=== PATIENT | male | born 1965 | race Caucasian/White ===

== ENCOUNTER 2022-05-01 11:33 | Emergency (ER) | payer SELFPAY ==
[2022-05-01 11:36] VITALS: BP 140/99; PULSE 94; RESP 18; TEMP 36.8; O2SAT 96; BMI 26.6
--- NOTE | 2022-05-01 11:55 | CTR_ITS ---
PROCEDURE INFORMATION: Exam: CT Head Without Contrast Exam date and time: 05/01/2022 12:31 PM Age: 56 years old Clinical indication: Pain; Headache not specified TECHNIQUE: Imaging protocol: Computed tomography of the head without contrast. Radiation optimization: All CT scans at this facility use at least one of these dose optimization techniques: automated exposure control; mA and/or kV adjustment per patient size (includes targeted exams where dose is matched to clinical indication); or iterative reconstruction. COMPARISON: No relevant prior studies available. RADIATION DOSE METRICS: Total DLP (mGy-cm): 1036.48 FINDINGS: Brain: Normal. No hemorrhage. No mass effect. Cortical sulci and white matter are unremarkable for age Cerebral ventricles: No ventriculomegaly. Paranasal sinuses: Visualized sinuses are unremarkable. No fluid levels. Mastoid air cells: Visualized mastoid air cells are well aerated. Bones/joints: Unremarkable. Soft tissues: Unremarkable. CT/CT head wo con* [id number] IMPRESSION: Normal CT examination of the head.
--- NOTE | 2022-05-01 11:57 | ED_ITS ---
HPI - Headache General: Chief Complaint: Headache Stated Complaint: Head aches Time Seen by Provider: 05/01/22 11:47 History of Present Illness: 56-year-old male who comes in with a left frontal headache. Patient describes headache as a dull ache. It came on gradually. The patient's headache is located in his left frontal area, radiating to the left occipital area and into his neck. He states he has had some associated dizziness as well as blurry vision. He denies fever. He denies any focal weakness or numbness. No rash. No prior history of migraine headaches. He tried Tylenol yesterday without improvement. He has chronic neck pain but he states it does not typically give him headaches. He denies URI symptoms. Associated symptoms: Deny fever(s) Review of Systems General: Reports: 10 or more systems reviewed and unremarkable except in HPI and below Const: Denies: fever(s), chills or body aches Eyes: Reports: blurry vision; Denies: eye discharge ENMT: Reports: disequilibrium; Denies: throat pain, tinnitus, nasal discharge or nasal congestion Musc: Reports: joint pain Neuro: Reports: headache(s), dizziness and vertigo; Denies: numbness in extremities, weakness in extremities, sensory changes or lack of coordination Physical Exam Const: COMMON NORMALS: no acute distress, patient oriented x3, alert and well nourished HENMT: COMMON NORMALS: normocephalic, atraumatic, external ears normal, Normal external nose present, Normal nasal mucous membranes and turbinates present and moist oral mucous membranes HEAD & SCALP: normocephalic, atraumatic and occipital foramen tenderness NOSE: Normal external nose present and Normal nasal mucous membranes and turbinates present EXTERNAL EAR: Yes external ears normal Eye: COMMON NORMALS: Equal, round and reactive pupils present, EOMs intact bilaterally and conjunctivae normal CONJUNCTIVA: Yes conjunctivae normal PUPIL: Yes Equal, round and reactive pupils present Neck/C-Spine: COMMON NORMALS: full ROM and no lymphadenopathy Resp: COMMON NORMALS: normal respiratory effort and clear to auscultation bilaterally AUSCULTATION: clear to auscultation bilaterally Cardio: COMMON NORMALS: regular rate and regular rhythm RATE: regular rate RHYTHM: regular rhythm GI: COMMON NORMALS: Soft to palpation and No hepatosplenomegaly present INSPECTION: No abdominal distension PALPATION: Yes Soft to palpation and Yes No hepatosplenomegaly present Extremity: COMMON NORMALS: no joint enlargement and no clubbing, cyanosis or edema Neuro: COMMON NORMALS: patient oriented x3, CN's II-XII intact bilaterally, moves all extremities, no focal motor deficits and no sensory deficits noted SENSORIUM/ORIENTATION: Yes alert Course ED course: Patient is had a CT of his head, labs obtained. Discussed results with him and the nursing home staff. Plan for discharge back to nursing home. Reevaluation(s): Reevaluation #1: Discussed results with the patient and the nursing home personnel with him. CT head is negative. Operatory studies are significant for being positive for influenza a which likely explains his symptoms. He does have an elevated CRP of 8.2 and mild hyponatremia with a sodium of 135. He is nontoxic in appearance but is tolerating p.o. fluids. I do not feel he has any meningeal signs and do not feel he needs a lumbar puncture. Feel he stable for discharge back to the nursing home. Do not feel that Tamiflu would be of benefit as he is 72 hours into his illness. Recommend supportive care including Tylenol, ibuprofen fluids and rest. Return precautions have been discussed Vital Signs: Vital signs: Vital Signs Temperature 98.2 F 05/01/22 11:36 Pulse Rate 94 05/01/22 11:36 Respiratory Rate 18 05/01/22 11:36 Blood Pressure 140/99 05/01/22 11:36 Pulse Oximetry 96 05/01/22 11:36 Oxygen Delivery Me thod 05/01/22 11:36 MDM - Headache Medical Decision Making 56-year-old male who presents with a left frontal headache. Gradual onset, not sudden onset thunderclap type headache so doubt subarachnoid hemorrhage. This is a new headache for the patient with associated blurry vision and dizziness. We will obtain a CT as well as labs including a sed rate. We will also swab for influenza and COVID. Patient is afebrile and has no nuchal rigidity so I doubt this is meningitis. Differential Diagnosis Likely migraine, tension headache, subarachnoid hemorrhage, headache, meningitis and sinusitis Lab Data 05/01/22 12:15 05/01/22 12:[address] 05/01/22 11:55 IMPRESSION: Normal CT examination of the head. Laboratory Results WBC 4.7 10^3/uL (4.0-10.0) 05/01/22 12:15 RBC 4.84 10^6/uL (4.1-5.3) 05/01/22 12:15 Hgb 15.3 g/dL (11.7-16.6) 05/01/22 12:15 Hct 44.0 % (42.0-52.0) 05/01/22 12:15 MCV 90.9 fl (80-94) 05/01/22 12:15 MCH 31.6 pg (28.0-34.0) 05/01/22 12:15 MCHC 34.8 g/dL (30.0-36.0) 05/01/22 12:15 RDW 12.2 % (12.1-15.1) 05/01/22 12:15 Plt Count 219 10^3/cmm (130-400) 05/01/22 12:15 MPV 9.2 fL (7.4-10.4) 05/01/22 12:15 Neut % (Auto) 54.2 % 05/01/22 12:15 Lymph % (Auto) 25.6 % 05/01/22 12:15 [place] % (Auto) 19.6 % 05/01/22 12:15 Eos % (Auto) 0.2 % 05/01/22 12:15 Baso % (Auto) 0.2 % 05/01/22 12:15 Neut # (Auto) 2.54 10^3/uL (1.8-7.7) 05/01/22 12:15 Lymph # (Auto) 1.2 10^3/uL (0.8-4.8) 05/01/22 12:15 [place] # (Auto) 0.9 10^3/uL (0.2-0.9) 05/01/22 12:15 Eos # (Auto) 0.0 10^3/uL (0.0-0.8) 05/01/22 12:15 Baso # (Auto) 0.0 10^3/uL (0.0-0.1) 05/01/22 12:15 Nucleated RBC % (auto) 0 % 05/01/22 12:15 Nucleated RBCs # 0.0 /100WBC 05/01/22 12:15 ESR 6 mm/hr (0-10) 05/01/22 12:15 Sodium 135 mmol/L (136-145) L 05/01/22 12:15 Potassium 4.2 mmol/L (3.5-5.1) 05/01/22 12:15 Chloride 99 mmol/L (98-107) 05/01/22 12:15 Carbon Dioxide 28 mmol/L (22-29) 05/01/22 12:15 Anion Gap 12.2 (5-19) 05/01/22 12:15 BUN 15 mg/dL (6-20) 05/01/22 12:15 Creatinine 1.0 mg/dL (0.7-1.2) 05/01/22 12:15 GFR Calculation 77.6 mL/min (90-130) L 05/01/22 12:15 Glucose 122 mg/dL (65-115) H 05/01/22 12:15 Calculated Osmolality 282 mOsm/kg (285-295) L 05/01/22 12:15 Calcium 9.3 mg/dL (8.5-10.5) 05/01/22 12:15 Total Bilirubin 0.3 mg/dL (0.15-1.2) 05/01/22 12:15 AST 22 U/L (0-40) 05/01/22 12:15 ALT 14 U/L (0-41) 05/01/22 12:15 Alkaline Phosphatase 60 U/L (40-130) 05/01/22 12:15 C-Reactive Protein 8.2 mg/L (0.0-4.9) H 05/01/22 12:15 Total Protein 7.5 g/dL (6.6-8.7) 05/01/22 12:15 Albumin 4.2 g/dL (3.5-5.2) 05/01/22 12:15 Globulin 3.3 g/dL (1.3-4.6) 05/01/22 12:15 TSH 0.53 uIU/mL (0.27-4.20) 05/01/22 12:15 Nasal Influ A H1 2009 PCR Detected (NOT DETECT) A 05/01/22 15:07 Coronavirus 229E (PCR) Not detected (NOT DETECT) 05/01/22 12:57 Influenza A (H1) PCR Not detected (NOT DETECT) 05/01/22 15:07 Influenza A (H3) PCR Not detected (NOT DETECT) 05/01/22 15:07 Influenza Type A (PCR) Detected (NOT DETECT) A 05/01/22 15:07 Influenza Type B (PCR) Not detected (NOT DETECT) 05/01/22 15:07 SARS-CoV-2 (PCR) Not detected (NOT DETECT) 05/01/22 12:57 Discharge Plan Discharge Patient Disposition: Home Clinical Impression: Influenza A, Headache Condition: Stable Prescriptions: No Action No Known Home Medications Discharge Orders: Discharge ED (Routine); Ordered 05/01/22 Ordered By: Tianna Dior Discharge Diet: Advance as tolerated Discharge Activity: Resume usual activity Patient Instructions: Influenza (ED), Opioid Safety, Pain Management Activity Restrictions/Additional Instructions: Tylenol or ibuprofen as needed for pain and fever. Push fluids. Rest. Return if your symptoms are worsening. Follow-up as needed with your primary care doctor Coding Level of Care Code ED [employer] for [employer] Exam Comprehensive
[2022-05-01] MEDS: orphenadrine 30 mg/mL Inj 2 mL 60 MG IVP (12:14)
[2022-05-01] MEDS: ketorolac 30 mg/mL INJ IVP (12:14)
[2022-05-01 12:23] LABS: Basophils % 0.2 %; Eosinophils % 0.2 %; Hemoglobin 15.3 g/dL (11.7-16.6); Lymphocytes # 1.2 10^3/uL (0.8-4.8); Lymphocytes % 25.6 %; Mean Corpuscular HGB Conc 34.8 g/dL (30.0-36.0); Mean Corpuscular Hemoglobin 31.6 pg (28.0-34.0); Mean Corpuscular Volume 90.9 fl (80-94); Mean Platelet Volume 9.2 fL (7.4-10.4); Monocytes # 0.9 10^3/uL (0.2-0.9); Monocytes % 19.6 %; Neutrophils # 2.54 10^3/uL (1.8-7.7); Neutrophils % 54.2 %; Nucleated Red Blood Cells % 0 %; Platelet Count 219 10^3/cmm (130-400); Red Blood Count 4.84 10^6/uL (4.1-5.3); Red Cell Distribution Width 12.2 % (12.1-15.1); White Blood Count 4.7 10^3/uL (4.0-10.0)
[2022-05-01 12:26] LABS: Erythrocyte Sedimentation Rate 6 mm/hr (0-10)
[2022-05-01 12:54] LABS: Alanine Aminotransferase 14 U/L (0-41); Albumin Level 4.2 g/dL (3.5-5.2); Alkaline Phosphatase 60 U/L (40-130); Anion Gap 12.2 (5-19); Aspartate Amino Transferase 22 U/L (0-40); Blood Urea Nitrogen 15 mg/dL (6-20); C Reactive Protein 8.2 mg/L (0.0-4.9); Calcium 9.3 mg/dL (8.5-10.5); Carbon Dioxide 28 mmol/L (22-29); Chloride 99 mmol/L (98-107); Creatinine Clr Calc Pharmacy 83.2344; Globulin 3.3 g/dL (1.3-4.6); Glomerular Filtration Rate 77.6 mL/min (90-130); Glucose 122 mg/dL (65-115); Osmolality Calculated 282 mOsm/kg (285-295); Potassium 4.2 mmol/L (3.5-5.1); Sodium 135 mmol/L (136-145); Thyroid Stimulating Hormone 0.53 uIU/mL (0.27-4.20); Total Bilirubin 0.3 mg/dL (0.15-1.2); Total Protein 7.5 g/dL (6.6-8.7)
[2022-05-01 14:48] LABS: Adenovirus Not Detected (NOT DETECT); Chlamydia Pneumoniae Not Detected (NOT DETECT); Coronavirus 229E,HKU1,NL63,OC4 Not Detected (NOT DETECT); Human Metapneumovirus Not Detected (NOT DETECT); Human Rhinovirus/Enterovirus Not Detected (NOT DETECT); Influenza A Detected (NOT DETECT); Influenza A H1 Not Detected (NOT DETECT); Influenza A H1-2009 Detected (NOT DETECT); Influenza A H3 Not Detected (NOT DETECT); Influenza B Not Detected (NOT DETECT); Mycoplasma Pneumoniae Not Detected (NOT DETECT); Parainfluenza Virus Type 1 Not Detected (NOT DETECT); Parainfluenza Virus Type 2 Not Detected (NOT DETECT); Parainfluenza Virus Type 3 Not Detected (NOT DETECT); Parainfluenza Virus Type 4 Not Detected (NOT DETECT); Respiratory Syncytial Virus A Not Detected (NOT DETECT); Respiratory Syncytial Virus B Not Detected (NOT DETECT); SARS-COV-2 Not Detected (NOT DETECT)
[2022-05-01 15:07] LABS: Influenza A Detected (NOT DETECT); Influenza A H1 Not Detected (NOT DETECT); Influenza A H1-2009 Detected (NOT DETECT); Influenza A H3 Not Detected (NOT DETECT); Influenza B Not Detected (NOT DETECT); Results from Genmark
[2022-05-01 15:07] LABS: Influenza A Detected (NOT DETECT); Influenza A H1 Not Detected (NOT DETECT); Influenza A H1-2009 Detected (NOT DETECT); Influenza A H3 Not Detected (NOT DETECT); Influenza B Not Detected (NOT DETECT); Results from Genmark
[2022-05-01 15:41] VITALS: BP 110/75; PULSE 81; RESP 16; O2SAT 90
== END 2022-05-01 15:43 | disposition home or self-care (01) ==
PROVIDERS: Emergency Provider Emergency Medicine
DX: J10.1 Influenza due to other identified influenza virus with other respiratory manifestations (principal); R51.9 Headache, unspecified; Z20.822 Contact with and (suspected) exposure to COVID-19
CPT/HCPCS: 70450; 80053; 84443; 85025; 85651; 86140; 87631; 87635; 96374; 96375; 99285; J1885; J2360